=== PATIENT | male | born 1990 | race Caucasian/White ===

== ENCOUNTER → 2017-05-12 | Outpatient (CLI) | payer BC ==
--- NOTE | 2017-05-15 07:05 | Diagnostic Imaging Report ---
CT scan of the RIGHT HAND, WITHOUT contrast. TECHNIQUE: Standard departmental protocols were used. Coronal and sagittal reformats are available. HISTORY: Pain, right fifth metacarpal pain, punched wall COMPARISON: None available FINDINGS: Bones: A minimally comminuted fracture involving the base of the fifth metacarpal bone, with oblique orientation of the main fracture line and intra-articular extension. Joints: The remaining joint spaces are well-maintained without dislocation. Soft tissues: Mild regional soft tissue fat stranding. IMPRESSION: Acute, minimally comminuted, intra-articular fracture involving the base of the fifth metacarpal bone. Signed by: Dr. Oswaldo Velazquez D.O., M.M.M. on 05/15/2017 7:01 AM
== END ==
LOC: CT 14:16
PROVIDERS: ATTEND Family Medicine
DX: M25.531 Pain in right wrist (principal)